=== PATIENT | female | born 1980 | race African-American/Black ===

== ENCOUNTER 2016-10-07 10:14 | Emergency (ER) | payer OTHER ==
--- NOTE | 2016-10-07 10:28 | EDPHY ---
H & P Stated Complaint: 3 days palpitations. Time Seen by Provider: 10/07/16 10:22 HPI/ROS: Chief Complaint: Palpitations HPI: 36-year-old female presenting with 3 days of palpitations, some mild tightness in her chest and some mild shortness shortness of breath. Does not have a history of the same. No recent illness. No nausea or vomiting. No cough. No leg pain or swelling. No recent travel or periods of immobility. Does not smoke. Does not take control. No family history of coronary artery disease or sudden cardiac . ROS: 10 point Review of Systems is negative except as noted in the HPI. PMH: None Medications: None Pain allergies: No known drug allergies Social History: No smoking, no alcohol, no recreational drug use Family History: non-contributory Physical Exam: Gen: Awake, Alert, No Distress HEENT: Nose: no rhinorrhea Eyes: PERRLA, EOMI Mouth: Moist mucosa Neck: Supple, no JVD Chest: nontender, lungs clear to auscultation Heart: S1, S2 normal, no murmur Abd: Soft, non-tender, no guarding Back: no CVA tenderness, no midline tenderness Ext: no edema, non-tender Skin: no rash Neuro: CN II-XII intact, Sensation grossly intact, Strength 5/5 in bilateral upper and lower extremities - Personal History LMP (Females 10-55): Unknown Current Tetanus/Diphtheria Vaccine: Unsure Current Tetanus Diphtheria and Acellular Pertussis (TDAP): Unsure - Medical/Surgical History Hx Asthma: No Hx Chronic Respiratory Disease: No Hx Diabetes: No Hx Cardiac Disease: No Hx Renal Disease: No Hx Cirrhosis: No Hx Alcoholism: No Hx HIV/AIDS: No Hx Splenectomy or Spleen Trauma: No Other PMH: Denies - Social History Smoking Status: Never smoked Constitutional: Initial Vital Signs Temperature (C) 37 C 10/07/16 10:22 Heart Rate 71 10/07/16 10:22 Respiratory Rate 18 10/07/16 10:22 Blood Pressure 118/80 10/07/16 10:22 O2 Sat (%) 100 10/07/16 10:22 O2 Delivery Mode Room Air Allergies/Adverse Reactions: No Known Allergies Allergy (Unverified 10/07/16 10:24) Home Medications: Medication Instructions Recorded NK [No Known Home Meds] 10/07/16 Medical Decision Making - Diagnostics EKG Interpretation: ECG time 10:29 a.m.: Sinus rhythm with a rate of 67, normal axis, normal intervals, no ST or T-wave changes. Impression: Normal ECG. ED Course/Re-evaluation: 36-year-old with palpitations. Has normal ECG here. Electrolytes test and troponin are normal. She has no symptoms suggestive of PE or risk factors. She has no pain. Will discharge with follow-up with primary care, return for worsening. I suspect her symptomatology is secondary to a viral upper respiratory type illness. - Data Points Laboratory Results: Laboratory Results 10/07/16 11:15 10/07/16 11:15 10/07/16 10/07/16 10/07/16 11:15 11:15 11:15 WBC 3.66 10^3/uL L 10^3/uL (3.80-9.50) RBC 4.54 10^6/uL 10^6/uL (4.18-5.33) Hgb 12.7 g/dL g/dL (12.6-16.3) Hct 37.5 % L % (38.0-47.0) MCV 82.6 fL fL (81.5-99.8) MCH 28.0 pg pg (27.9-34.1) MCHC 33.9 g/dL g/dL (32.4-36.7) RDW 13.6 % % (11.5-15.2) Plt Count 268 10^3/uL 10^3/uL (150-400) MPV 10.8 fL fL (8.7-11.7) Neut % (Auto) 25.4 % L % (39.3-74.2) Lymph % (Auto) 63.7 % H % (15.0-45.0) [place] % (Auto) 7.4 % % (4.5-13.0) Eos % (Auto) 2.5 % % (0.6-7.6) Baso % (Auto) 0.5 % % (0.3-1.7) Nucleat RBC Rel Count 0.0 % % (0.0-0.2) Absolute Neuts (auto) 0.93 10^3/uL L 10^3/uL (1.70-6.50) Absolute Lymphs (auto) 2.33 10^3/uL 10^3/uL (1.00-3.00) Absolute Monos (auto) 0.27 10^3/uL L 10^3/uL (0.30-0.80) Absolute Eos (auto) 0.09 10^3/uL 10^3/uL (0.03-0.40) Absolute Basos (auto) 0.02 10^3/uL 10^3/uL (0.02-0.10) Absolute Nucleated RBC 0.00 10^3/uL 10^3/uL (0-0.01) Immature Gran % 0.5 % % (0.0-1.1) Immature Gran # 0.02 10^3/uL 10^3/uL (0.00-0.10) Sodium 139 mEq/L mEq/L (134-144) Potassium 3.9 mEq/L mEq/L (3.5-5.2) Chloride 102 mEq/L mEq/L (97-110) Carbon Dioxide 24 mEq/l mEq/l (22-31) Anion Gap 13 mEq/L mEq/L (8-16) BUN 11 mg/dL mg/dL (7-23) Creatinine 0.7 mg/dL mg/dL (0.6-1.0) Estimated GFR > 60 Glucose 78 mg/dL mg/dL (70-100) Calcium 9.1 mg/dL mg/dL (8.5-10.4) Troponin I < 0.012 ng/mL ng/mL (0-0.034) Beta HCG, Qual NEGATIVE Departure - Departure Disposition: Home, Routine, Self-Care Clinical Impression: Palpitations Condition: Good Instructions: Palpitations (ED) Additional Instructions: Patient drink plenty of fluids and try to avoid caffeinated beverages. Return to the emergency depart for increasing chest pain, shortness of breath, fevers, chills, or any other concerns. Follow up with primary care physician in 3-4 days if symptoms are not improving.
[2016-10-07 11:19] LABS: % IMMATURE GRANULYOCYTES 0.5 % (0.0-1.1); ABSOLUTE IMMATURE GRANULOCYTES 0.02 10^3/uL (0.00-0.10); ADD DIFF? NO; ADD MORPH? NO; ADD SCAN? NO; ATYPICAL LYMPHOCYTE FLAG 40 (0-99); FRAGMENT RBC FLAG 0 (0-99); HEMATOCRIT 37.5 % (38.0-47.0); HEMOGLOBIN 12.7 g/dL (12.6-16.3); LEFT SHIFT FLG 0 (0-99); LIPEMIA HEMOLYSIS FLAG 90 (0-99); MEAN CELL HEMOGLOBIN CONCENTR. 33.9 g/dL (32.4-36.7); MEAN CELL VOLUME 82.6 fL (81.5-99.8); MEAN PLATELET VOLUME 10.8 fL (8.7-11.7); PLATELET CLUMPS FLAG 0 (0-99); PLATELET COUNT 268 10^3/uL (150-400); RED BLOOD CELL COUNT 4.54 10^6/uL (4.18-5.33); RED CELL DISTRIBUTION WIDTH 13.6 % (11.5-15.2)
[2016-10-07 11:25] LABS: ANION GAP 13 mEq/L (8-16); CALCIUM 9.1 mg/dL (8.5-10.4); CARBON DIOXIDE 24 mEq/l (22-31); CHLORIDE 102 mEq/L (97-110); CREATININE 0.7 mg/dL (0.6-1.0); GLOMERULAR FILTRATION RATE > 60; GLUCOSE 78 mg/dL (70-100); POTASSIUM 3.9 mEq/L (3.5-5.2); SODIUM 139 mEq/L (134-144)
[2016-10-07 11:38] LABS: TROPONIN I < 0.012 ng/mL (0-0.034)
[2016-10-07 12:26] VITALS: BP 119/78; PULSE 64; RESP 12; TEMP 97.7; O2SAT 99
--- NOTE | 2016-10-07 13:41 | CPEKG ---
Heart Rate: 67 RR Interval: 896 P-R Interval: 158 QRSD Interval: 78 QT Interval: 388 QTC Interval: 410 P [place]: 36 QRS [place]: 44 T Wave [place]: 20 EKG Severity - NORMAL ECG - EKG Impression: SINUS RHYTHM Electronically Signed By: Baldo Rueda 07-Oct-2016 13:41:12
== END 2016-10-07 12:26 | disposition home or self-care (01) ==
LOC: CED 10:14
DX: R00.2 Palpitations (principal)
CPT/HCPCS: 80048-PO; 84484-PO; 84703-PO; 85025-PO

== ENCOUNTER 2018-11-11 04:14 | Inpatient (IN) | payer OTHER | END 2018-11-13 17:40 | disposition home or self-care (01) | LOC: F1N 08:38 ==